=== PATIENT | male | born 1980 | race Asian ===

== ENCOUNTER 2016-09-01 21:46 | Emergency (ER) | payer OTHER ==
[~2016-09-01] VITALS: Ht 172.7 cm; Wt 63.5 kg
[2016-09-01] MEDS ORDERED: NKM (21:58)
[2016-09-01 22:00] VITALS: BP 119/47
--- NOTE | 2016-09-01 22:41 | Emergency Room Report ---
History of Present Illness General Chief Complaint: Head Injury Source: Patient Present Illness HPI Is a 36-year-old male with no past history. He had a history of depression in the past. He was playing basketball today and fell and hit the back of his head on the pavement. He presents with chief complaint of dizziness and headache. Worse with otitis phone. No loss of consciousness. Minimal pain now. No other complaint. Allergies: Coded Allergies: MELON (Verified Allergy, Mild, itchy, 09/01/16) SOY (Verified Allergy, Mild, 09/01/16) Uncoded Allergies: PEACHES (Allergy, Mild, itching, 09/01/16) Patient History Past Medical History: see triage record, old chart reviewed Past Surgical History: none Pertinent Family History: none Social History: Denies: smoking Immunizations: other Reviewed Nursing Documentation: PMH: Agreed, PSxH: Agreed Nursing Documentation-PMH Past Medical History: No Stated History Review of Systems Eye: Denies: blurred vision, eye pain ENT: Denies: ear pain, nose congestion, throat swelling Respiratory: Denies: cough, shortness of breath Cardiovascular: Denies: chest pain, palpitations Gastrointestinal: Denies: abdominal pain, diarrhea, nausea, vomiting Musculoskeletal: Denies: back pain, joint pain Skin: Denies: rash Neurological: Denies: headache, numbness Endocrine: Denies: increased thirst, increased urine Hematologic/Lymphatic: Denies: easy bruising All Other Systems: negative except mentioned in HPI Physical Exam Vital Signs Date Time Temp Pulse Resp B/P Pulse Ox O2 Delivery O2 Flow Rate FiO2 09/01/16 21:54 98.2 63 14 119/47 99 Room Air vitals normal Sp02 EP Interpretation: reviewed, normal General Appearance: well appearing, no apparent distress, alert Head: normocephalic, atraumatic Eyes: bilateral eye EOMI, bilateral eye PERRL ENT: hearing grossly normal, normal pharynx Neck: full range of motion, supple, no meningismus Respiratory: chest non-tender, lungs clear, normal breath sounds Cardiovascular #1: regular rate, rhythm, no murmur Gastrointestinal: normal bowel sounds, non tender, no mass, no organomegaly, no bruit, non-distended Musculoskeletal: back normal, gait/station normal, normal range of motion Psychiatric: mood/affect normal Skin: warm/dry Medical Decision Making Diagnostic Impression: Primary Impression: Acute head injury Qualified Codes: S09.90XA - Unspecified injury of head, initial encounter ER Course Present with head injury with mild postconcussive syndrome. No evidence of intracranial bleed or fracture. We'll discharge home with reassurance. CT/MRI/US Diagnostic Results CT/MRI/US Diagnostic Results : Imaging Test Ordered: CT head Impression read by radiologist. Negative. Last Vital Signs Date Time Temp Pulse Resp B/P Pulse Ox O2 Delivery O2 Flow Rate FiO2 09/01/16 21:54 98.2 63 14 119/47 99 Room Air Status: improved Disposition: HOME, SELF-CARE Condition: Stable Patient Instructions: HEAD INJURY, No Wake-Up (Adult) Additional Instructions: Followup with your Dr. in 7 days. Return to worse. Avoid any head trauma. Avoid video games. BRITT FLEMING M.D. Sep 01, 2016 22:41
[2016-09-01 22:45] VITALS: BP 119/47
--- NOTE | 2016-09-02 10:26 | Diagnostic Imaging Report ---
Indications: Wall, posterior head trauma, pain, dizziness, photophobia Technique: Continuous helical CT imaging of the brain was performed with automatic exposure control on a Siem[employer] sensation [address] scanner. Axial and coronal images were reconstructed at 5 mm slice thickness and interval. CTDI volume(s): 70 mGy Total DLP: 1404 mGy-cm Findings: Comparison: None. Intracranial anatomy is unremarkable. No evidence of mass or hemorrhage, other attenuation abnormality, mass effect, midline shift, hydrocephalus or increased intracranial pressure. Bone window images are unremarkable. Visualized paranasal sinuses and mastoid air cells are clear. IMPRESSION: Negative noncontrast CT scan of the brain . This correlates with [facility] preliminary report. The CT scanner at [facility] is accredited by the [employer] and the scans are performed using protocols designed to limit radiation exposure to as low as reasonably achievable to attain images of sufficient resolution adequate for diagnostic evaluation.
== END 2016-09-01 22:45 | disposition home or self-care (01) ==
LOC: EMR 22:35
DX: S09.8XXA Other specified injuries of head, initial encounter (principal); W19.XXXA Unspecified fall, initial encounter; Y93.67 Activity, basketball; Y92.39 Other specified sports and athletic area as the place of occurrence of the external cause; R51 Headache; R42 Dizziness and giddiness; Z91.018 Allergy to other foods
CPT/HCPCS: 70450; 99284